=== PATIENT | female | born 1995 | race African-American/Black ===

== ENCOUNTER 2018-02-16 12:55 | Emergency (ER) | payer SELFPAY ==
[2018-02-16] MEDS ORDERED: TETRACAINE HCL 0.5% OPH SOLN 2 ML OU ONE (13:45)
--- NOTE | 2018-02-16 15:09 | ER Document Report ---
HPI - HPI Patient complains to provider of: Right eye pain Onset: Yesterday Onset/Duration: Persistent Pain Level: 4 Context: 22-year-old soft contact lens wear [place]. Saturday her right eye felt irritated and she felt like something was under the right upper eyelid. No history of corneal abrasion or ulcer. She does not have her contacts and she took them out yesterday so she has been unable to do the visual acuity. She is visiting the area from [place] and needs to drive home tomorrow. There is been some watering but no purulent discharge. No fever or chills. No recent upper respiratory infection. She used some over-the -counter eyedrops but does not know the name of them. Associated Symptoms: None Exacerbated by: Denies Relieved by: Denies Similar symptoms previously: No Recently seen / treated by doctor: No - ROS ROS below otherwise negative: Yes Systems Reviewed and Negative: Yes All other systems reviewed and negative Past Medical History - General Information source: Patient - Social History Smoking Status: Never Smoker Lives with: Family Family History: Reviewed & Not Pertinent - Medical History Medical History: Negative Surgical Hx: Negative Vertical Provider Document - CONSTITUTIONAL Agree With Documented VS: Yes Exam Limitations: No Limitations General Appearance: No Apparent Distress - HEENT Notes: PERRL, no conjunctival injection. No fluorescein uptake, no foreign body under the slipped upper lid. No corneal ulcer. No adenopathy. AeroChamber normal. No limbic inflammation. No lid swelling or periorbital swelling. - NECK Neck: Supple. negative: Lymphadenopathy-Left, Lymphadenopathy-Right - NEURO Level of Consciousness: Awake - DERM Integumentary: No Rash Course - Vital Signs Vital signs: Temp Pulse Resp BP Pulse Ox 98.7 F 92 18 107/77 100 02/16/18 13:16 02/16/18 13:16 02/16/18 13:16 02/16/18 13:16 02/16/18 13:16 Discharge - Discharge Clinical Impression: Irritation of right eye Condition: Good Disposition: HOME, SELF-CARE Instructions: Eyedrop Use ([facility]) Additional Instructions: See the eye doctor when you get home to [place] tomorrow Use the antibiotic drops today and only put the new contacts in prior to you drive home Return to the emergency room for any swelling increased pain or change in vision Prescriptions: Tobramycin Sulfate [Tobrex 0.3% Oph Soln 5 Ml] 2 drop OD QID #1 bottle
[2018-02-16 16:17] VITALS: BP 112/80
== END 2018-02-16 16:10 | disposition home or self-care (01) ==
LOC: ER 12:55
DX: H57.8 Other specified disorders of eye and adnexa (principal)
CPT/HCPCS: 99283